=== PATIENT | male | born 1990 | race Caucasian/White ===

== ENCOUNTER 2020-07-01 04:12 | Emergency (ER) | payer MEDICAID ==
[2020-07-01] MEDS ORDERED: ZOFRAN ODT 4 MG PO ONE (04:58)
[2020-07-01] MEDS ORDERED: Hydromorphone 1 mg/ml Injection ONE (05:00)
[2020-07-01] MEDS ORDERED: ZOFRAN ODT 4 MG ONE (05:00)
[2020-07-01] MEDS: Hydromorphone 1 mg/ml Injection IM ONE ×2 (05:02→06:30)
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
[2020-07-01] MEDS ORDERED: KEFLEX 500 MG PO ONE (05:45)
[2020-07-01] MEDS ORDERED: KEFLEX 500 MG ONE (05:59)
[2020-07-01 06:01] VITALS: BP 138/87; PULSE 88
[2020-07-01 06:12] VITALS: O2SAT 97
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
== END 2020-07-01 06:30 | disposition home or self-care (01) ==
LOC: ED 04:12
DX: S01.81XA Laceration without foreign body of other part of head, initial encounter (principal); Y08.02XA Assault by strike by baseball bat, initial encounter; R11.2 Nausea with vomiting, unspecified
CPT/HCPCS: 12004; 70450; 99284; J1170; Q0162; A9270-GY

== ENCOUNTER 2020-07-10 17:40 | Emergency (ER) | payer MEDICAID ==
[2020-07-10 17:52] VITALS: BP 170/110; PULSE 113; O2SAT 98
--- NOTE | 2020-07-10 17:55 | ERPHSYRPT ---
- History of Present Illness Time Seen by Provider: 07/10/20 17:51 Source: patient Exam Limitations: no limitations Physician History: Patient is a 30-year-old male who presents with a request for staple removal. These were placed here 9 days ago and his scalp. He has had no problems. Timing/Duration: day(s) (9) Location: scalp Possible Causes: other (Injury) Associated Symptoms: denies symptoms Allergies/Adverse Reactions: No Known Drug Allergies Allergy (Unverified 07/01/20 04:32) Hx Tetanus, Diphtheria Vaccination/Date Given: Yes Hx Influenza Vaccination/Date Given: No Hx Pneumococcal Vaccination/Date Given: No - Review of Systems Constitutional: No Fever, No Chills Eyes: No Symptoms Ears, Nose, & Throat: No Symptoms Respiratory: No Cough, No Dyspnea Cardiac: No Chest Pain, No Edema, No Syncope Abdominal/Gastrointestinal: No Abdominal Pain, No Nausea, No Vomiting, No Diarrhea Genitourinary Symptoms: No Dysuria Musculoskeletal: No Back Pain, No Neck Pain Skin: No Rash Neurological: No Dizziness, No Focal Weakness, No Sensory Changes Psychological: No Symptoms Endocrine: No Symptoms All Other Systems: Reviewed and Negative - Past Medical History Pertinent Past Medical History: No Neurological History: No Pertinent History ENT History: No Pertinent History Cardiac History: No Pertinent History Respiratory History: No Pertinent History Endocrine Medical History: No Pertinent History Musculoskeletal History: No Pertinent History GI Medical History: No Pertinent History History: No Pertinent History Psycho-Social History: No Pertinent History Male Reproductive Disorders: No Pertinent History - Past Surgical History Past Surgical History: No Neuro Surgical History: No Pertinent History Cardiac: No Pertinent History Respiratory: No Pertinent History Gastrointestinal: No Pertinent History Genitourinary: No Pertinent History Musculoskeletal: No Pertinent History Male Surgical History: No Pertinent History - Social History Smoking Status: Current every day smoker How long have you smoked: 10 years Exposure to second hand smoke: Yes Drug Use: marijuana Patient Lives Alone: No - Physical Exam General Appearance: no apparent distress, alert Eye Exam: PERRL/EOMI, eyes nml inspection Ears, Nose, Throat Exam: normal ENT inspection, pharynx normal, moist mucous membranes Neck Exam: normal inspection, non-tender, supple, full range of motion Respiratory Exam: normal breath sounds, lungs clear, No respiratory distress Cardiovascular Exam: regular rate/rhythm, normal heart sounds Gastrointestinal/Abdomen Exam: soft, mass, No tenderness Back Exam: normal inspection, normal range of motion, No CVA tenderness, No vertebral tenderness Extremity Exam: normal inspection, normal range of motion Neurologic Exam: alert, oriented x 3, cooperative, normal mood/affect, sensation nml, No motor deficits Skin Exam: normal color, warm, dry, other (Healing laceration of the scalp alana are removed) SpO2 Interpretation: normal O2 Delivery: Room Air - Course Nursing assessment & vital signs reviewed: Yes - Progress Progress: improved Progress Note: 07/10/20 17:53 Alana were removed from the scalp laceration per the ER nurse - Departure Departure Disposition: Home Clinical Impression: Removal of alana, Scalp laceration Condition: Stable Critical Care Time: No Referrals: DOCTOR,NO FAMILY [Primary Care Provider] - Instructions: Staple Removal
== END 2020-07-10 18:01 | disposition home or self-care (01) ==
LOC: ED 17:40
DX: Z48.02 Encounter for removal of sutures (principal)
CPT/HCPCS: 99283; G0463